=== PATIENT | male | born 1955 | race Caucasian/White ===

== ENCOUNTER → 2021-08-07 | Outpatient (CLI) | payer BC ==
[~2021-08-07] MED LIST: ASPI81CH PO; METF500 PO; Multivitamin1 EAC1 PO; RANI150 PO
[2021-08-07 14:18] LABS: Protein, Urine Quantitative 6.3 mg/dL (0.0-11.9)
== END | disposition home or self-care (01) ==
LOC: LAB SHORT 10:30 → LAB 10:30
PROVIDERS: Family Medicine
DX: R80.1 Persistent proteinuria, unspecified (principal)
CPT/HCPCS: 81050; 84156

== ENCOUNTER 2025-03-17 08:07 | Day surgery (SDC) | payer MEDICARE ==
[~2025-03-17] VITALS: Ht 188 cm; Wt 116.3 kg
[~2025-03-17 08:07] MED LIST changes: +Amlodipine Bes2.5 MG PO; +FARXIGA10 MG PO; +IRBE75 PO; +ROSUVASTATIN CAL5 MG PO; +Vitamin B-12100 MCG PO
[2025-03-17 09:11] VITALS: BP 117/69
--- NOTE | 2025-03-17 09:29 | NUR ---
03/17/25 0929 Regina Ceballos 0924-INTO ENDO 1-CONFIRMED AND REVIEWED H&P, MEDCICATIONS, ALLERGIES, MEDICAL HISTORY, RESPIRATORY HISTORY, VITAL SIGNS, 3-LEAD EKG, CONSENTS, AND PHYSICIAN ORDERS. PATIENT CONFIRMS NPO STATUS AND AGREES WITH SCHEDULED PROCEDURE. MONITOR INTACT WITH CONTINUOUS PULSE OXIMETRY, CAPNOGRAPHY, 3-LEAD EKG, INTERMITTENT BP. SUPPLEMENTAL O2 TO BE TITRATED THROUGHOUT PROCEDURE TO MAINTAIN O2 SATURATION ABOVE 90%. PATIENT DETERMINED TO BE ASA APPROPRIATE FOR MAC SEE ANESTHESIA RECORD.
[2025-03-17 10:09] VITALS: BP 103/70
--- NOTE | 2025-03-17 10:16 | NUR ---
DR JUAN AT BEDSIDE REVIEWING RESULTS AND FOLLOW-UP PLAN WITH PATIENT.
[2025-03-17 10:18] VITALS: BP 130/81
--- NOTE | 2025-03-17 10:33 | NUR ---
1025- Discharge instructions reviewed with patient. Patient verbalizes understanding. Copy given to patient to take home. VSS. No c/o verbalized. Tolerating sips of PO fluids. Up to ambulate with steady gait. Patient arranged ride with Jaye, significant other, and agrees not to drive for 24 hours.
== END 2025-03-17 10:32 | disposition home or self-care (01) ==
LOC: ORSCMMR 08:07 → ORD 09:30 → ORSCMMR 09:30
PROVIDERS: Internal Medicine Gastroenterology
PROC: 0DBL8ZX Excision of Transverse Colon, Via Natural or Artificial Opening Endoscopic, Diagnostic (ICD-10-PCS; principal; 2025-03-17 09:30)
PROC: 0DBK8ZX Excision of Ascending Colon, Via Natural or Artificial Opening Endoscopic, Diagnostic (ICD-10-PCS; principal; 2025-03-17 09:30)
PROC: 0DBN8ZX Excision of Sigmoid Colon, Via Natural or Artificial Opening Endoscopic, Diagnostic (ICD-10-PCS; principal; 2025-03-17 09:30)
DX: Z12.11 Encounter for screening for malignant neoplasm of colon (principal); D12.3 Benign neoplasm of transverse colon; D12.2 Benign neoplasm of ascending colon; D12.5 Benign neoplasm of sigmoid colon; I10 Essential (primary) hypertension; K21.9 Gastro-esophageal reflux disease without esophagitis; E11.9 Type 2 diabetes mellitus without complications; G47.30 Sleep apnea, unspecified; E78.00 Pure hypercholesterolemia, unspecified; Z87.891 Personal history of nicotine dependence; Z79.82 Long term (current) use of aspirin; Z79.84 Long term (current) use of oral hypoglycemic drugs; Z79.899 Other long term (current) drug therapy
CPT/HCPCS: 82947; 88305; J2704; J7120